=== PATIENT | male | born 1955 | race Caucasian/White ===

== ENCOUNTER 2020-07-02 17:15 | Emergency (ER) | payer MEDICARE, OTHER, SELFPAY ==
[2020-07-02] VITALS (7 sets, daily range): BP systolic 131–191; BP diastolic 71–105; PULSE 68–88; RESP 10–171; TEMP 36.6; O2SAT 93–98; BMI 31.8
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
[2020-07-02] MEDS: fentaNYL 50 mcg/mL INJ 2mL IVP ×2 (18:46→20:13)
[2020-07-02] MEDS: sodium chloride 0.9% 500 ML 999 ML IV (18:47)
--- NOTE | 2020-07-02 18:50 | PC.NURSE ---
XRs performed at bedside
--- NOTE | 2020-07-02 18:53 | PC.NURSE ---
Report given to Raghu Jimenez RN
[2020-07-02 18:59] LABS: Basophils # 0.1 10^3/uL (0.0-0.1); Basophils % 0.3 %; Eosinophils # 0.1 10^3/uL (0.0-0.8); Eosinophils % 0.3 %; Hematocrit 42.1 % (42.0-52.0); Hemoglobin 14.5 g/dL (11.7-16.6); Lymphocytes # 0.9 10^3/uL (0.8-4.8); Lymphocytes % 4.8 %; Mean Corpuscular HGB Conc 34.4 g/dL (30.0-36.0); Mean Corpuscular Volume 87.2 fL (80-94); Mean Platelet Volume 10.1 fL (7.4-10.4); Monocytes % 5.7 %; Neutrophils # 15.95 10^3/uL (1.8-7.7); Neutrophils % 88.3 %; Nucleated Red Blood Cells % 0 %; Platelet Count 242 10^3/cmm (130-400); Red Blood Count 4.83 10^6/uL (4.1-5.3); Red Cell Distribution Width 12.5 % (12.1-15.1)
[2020-07-02 19:17] LABS: Anion Gap 15.7 (5-19); Blood Urea Nitrogen 18 mg/dL (8-23); Carbon Dioxide 25 mmol/L (22-29); Chloride 99 mmol/L (98-107); Glucose 140 mg/dL (65-115); Osmolality Calculated 281 mOsm/kg (285-295); Potassium 3.7 mmol/L (3.5-5.1); Sodium 136 mmol/L (136-145)
[2020-07-02] MEDS: iodixanol 320 mg/mL 100mL Btl IV (19:31)
[2020-07-02] MEDS: sodium chloride 0.9% 1,000 ML 999 ML IV (20:13)
[2020-07-02] MEDS: HYDROcodone-acetaminophen 7.5-325 mg Tablet 2 TAB PO (21:20)
--- NOTE | 2020-07-03 10:52 | DCPLANNER ---
Addendum entered by Naya Nuno 07/03/20 15:51: Pat from ortho called case sealer stating that when patient was called to confirm appointment, patient stated that he does not live here, he will follow up when he gets home. Original Note: territory sales manager had message to schedule a follow up appointment for patient with ortho. territory sales manager called the ortho clinic, spoke with Pat, gave clinic patients information. territory sales manager was told that patients information would be printed and reviewed. Clinic will call patient with appointment information.
== END 2020-07-02 21:30 | disposition home or self-care (01) ==
PROVIDERS: Emergency Provider Nurse Practitioner Family
DX: S42.022A Displaced fracture of shaft of left clavicle, initial encounter for closed fracture (principal); S22.42XA Multiple fractures of ribs, left side, initial encounter for closed fracture; S82.391A Other fracture of lower end of right tibia, initial encounter for closed fracture; Z79.82 Long term (current) use of aspirin; V20.4XXA Motorcycle driver injured in collision with pedestrian or animal in traffic accident, initial encounter
CPT/HCPCS: 12345; 36415; 70450; 71260; 72125; 73030; 73590; 73610; 74177; 80048; 85025; 96361; 96374; 96375; 96376; 99283; 99284; 99285; J3010; J7030; J7040; L4360; Q9967